=== PATIENT | female | born 1940 | race Caucasian/White ===

== ENCOUNTER 2017-06-28 06:39 | Day surgery (SDC) | payer MEDICARE, BC ==
[~2017-06-28 06:39] MED LIST: Lactated Ringers 1,000 ML IV SCH; Lidocaine 1%/Sod Bicarbonate in NS 8.4% 1 ML Syringe IDERM PRN; Sodium Chloride 0.9% 10 ML Syringe FLUSH PRN
[2017-06-28] MEDS ORDERED: Lidocaine 1% 4 ML ONE (06:44)
[2017-06-28] MEDS ORDERED: Propofol 200 MG/20 ML SDV ONE (06:44)
[2017-06-28] MEDS ORDERED: fentaNYL 100 MCG/2 ML SDV ONE (06:44)
--- NOTE | 2017-06-28 07:30 | PCM.PREANE ---
Preanesthetic Assessment - Procedure Proposed Procedure: colonoscopy - Anesthesia/Transfusion/Family Hx Anesthesia History: Prior Anesthesia Without Reaction (little nausea) Family History of Anesthesia Reaction: No Transfusion History: No Prior Transfusion(s) - Review of Systems General: No Symptoms Pulmonary: Shortness of Breath, Wheezing, Cough Cardiovascular: Dyspnea on Exertion Gastrointestinal: No Symptoms, Other (constipated) Neurological: No Symptoms Other: Reports: Thyroid Problems, Neck Pain - Physical Assessment NPO Status Date: 06/27/17 NPO Status Time: 23:00 Pulse: 71 O2 Sat by Pulse Oximetry: 96 Respiratory Rate: 16 Blood Pressure: 123/71 Temperature: 97.5 F Height: 5 ft 6 in Weight: 77 kg ASA Class: 3 Mental Status: Alert & Oriented x3 Airway Class: Mallampati = 1 Dentition: Reports: Normal Dentition Thyro-Mental Finger Breadths: 3 Mouth Opening Finger Breadths: 3 ROM/Head Extension: Full Lungs: Clear to Auscultation, Normal Respiratory Effort Cardiovascular: Regular Rate, Regular Rhythm - Allergies Allergies/Adverse Reactions: Allergies Allergy/AdvReac Type Severity Reaction Status Date / Time No Known Allergies Allergy Verified 06/27/17 11:35 - Blood Blood Available: No - Anesthesia Plan Beta Roque: Carvedilol Med Last Dose Date: 06/28/17 Med Last Dose Time: 06:00 - Acknowledgements Anesthesia Type Planned: MAC Pt an Appropriate Candidate for the Planned Anesthesia: Yes Alternatives and Risks of Anesthesia Discussed w Pt/Guardian: Yes Pt/Guardian Understands and Agrees with Anesthesia Plan: Yes PreAnesthesia Questionnaire HEENT History: Reports: Impaired Vision Cardiovascular History: Reports: Cardiomyopathy, Other (See Below) Other Cardiovascular History: mitral regurgitation, left BBB, chest pain, aortic regurgitation, palpitations Respiratory History: Reports: Asthma, Bronchitis, Recurrent Gastrointestinal History: Reports: Colon Polyp Genitourinary History: Reports: None HAND TIRE TRIMMER History: Reports: None Neurological History: Reports: Other (See Below) 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 Psychiatric History: Reports: None Endocrine/Metabolic History: Reports: None Hematologic History: Reports: None Immunologic History: Reports: None Oncologic (Cancer) History: Reports: None - Past Surgical History HEENT Surgical History: Reports: Tonsillectomy Cardiovascular Surgical History: Reports: None Respiratory Surgical History: Reports: None GI Surgical History: Reports: Colonoscopy Female Surgical History: Reports: LEEP Male Surgical History: Reports: None Endocrine Surgical History: Reports: None Musculoskeletal Surgical History: Reports: Knee Replacement Oncologic Surgical History: Reports: None Dermatological Surgical History: Reports: Other (See Below) - SUBSTANCE USE Smoking Status *Q: Former Smoker Tobacco Use Within Last Twelve Months: No Second Hand Smoke Exposure: No Days Per Week of Alcohol Use: 1 (very little) Number of Drinks Per Day: 1 Total Drinks Per Week: 1 Recreational Drug Use History: No - HOME MEDS Home Medications: Home Meds Aspirin [Dae Chewable] 192 mg PO DAILY 09/19/13 [History] Fluticasone/Salmeterol [Advair 100-50 Diskus] 1 puff INH BID 09/19/13 [History] Carvedilol 6.25 mg PO BID 06/27/17 [History] Furosemide 20 mg PO DAILY 06/27/17 [History] Levothyroxine [Synthroid] 50 mcg PO DAILY 06/27/17 [History] Lisinopril [Zestril] 2.5 mg PO BID 06/27/17 [History] Rosuvastatin [Crestor] 20 mg PO DAILY 06/27/17 [History] - CURRENT (IN HOUSE) MEDS Current Meds: Current Medications Lactated Ringer's (Ringers, Lactated) 1,000 mls @ 125 mls/hr IV ASDIRECTED LEELA Stop: 06/28/17 23:00 Lidocaine/Sodium Bicarbonate (Buffered Lidocaine 1% In Ns 8.4%) 0.25 ml IDERM ONETIME PRN PRN Reason: Prior to IV Start Stop: 06/28/17 18:00 Sodium Chloride (Saline Flush) 10 ml FLUSH ASDIRECTED PRN PRN Reason: Keep Vein Open Stop: 06/28/17 18:00 Discontinued Medications Fentanyl (Sublimaze) Confirm Administered Dose 100 mcg .ROUTE .STK-MED ONE Stop: 06/28/17 06:45 Lidocaine HCl (Xylocaine-Mpf 1%) Confirm Administered Dose 4 mls @ as directed .ROUTE .STK-MED ONE Stop: 06/28/17 06:45 Propofol (Diprivan 20 Ml) Confirm Administered Dose 200 mg .ROUTE .STK-MED ONE Stop: 06/28/17 06:45
[2017-06-28] MEDS ORDERED: ePHEDrine 50 MG/ML SDV ONE (08:52)
--- NOTE | 2017-06-28 08:56 | PCM.OPNOTE ---
- General Post-Op/Procedure Note Date of Surgery/Procedure: 06/28/17 Operative Procedure(s): Colonoscopy with cold forceps biopsy Findings: Diverticulosis of entire colon, 2 mm sigmoid polyp Pre Op Diagnosis: Change in bowel habits Post-Op Diagnosis: Diverticulosis of entire colon, 2 mm sigmoid colon polyp Anesthesia Technique: MAC Primary Surgeon: Hollis Clark Anesthesia Provider: Johana Montelongo EBL in mLs: 5 Complications: None Condition: Good Free Text/Narrative:: After the patient gave verbal and written consent, she was placed on blood pressure and pulse ox monitoring. She was given iv sedation which she tolerated well. The olympus colonoscope was advanced to the cecum without difficulty. The ileocecal valve and appendiceal orfice were imaged documenting cecal intubation. The scope was slowly withdrawn. The prep was excellent. The views were excellent. The mucosa was carefully examined. Moderate diverticulosis of the entire colon was noted. A 2 mm sigmoid polyp was noted and removed with cold forceps biopsy. There was good hemostasis. The scope was retroflexed in the rectum and then removed.
--- NOTE | 2017-06-28 08:58 | PCM48HPAN ---
Post Anesthesia Note - EVALUATION WITHIN 48HRS OF ANESTHETIC Vital Signs in Normal Range: Yes Patient Participated in Evaluation: Yes Respiratory Function Stable: Yes Airway Patent: Yes Cardiovascular Function Stable: Yes Hydration Status Stable: Yes Pain Control Satisfactory: Yes Nausea and Vomiting Control Satisfactory: Yes Mental Status Recovered: Yes Pulse Rate: 62 SaO2: 94 Resp Rate: 14 Temperature: 97.4 F Blood Pressure: 102/54
== END 2017-06-28 09:45 | disposition home or self-care (01) ==
LOC: JD.SDS 06:39
PROVIDERS: ATTEND Family Medicine
DX: K63.5 Polyp of colon (principal); K57.30 Diverticulosis of large intestine without perforation or abscess without bleeding; I44.7 Left bundle-branch block, unspecified; I42.0 Dilated cardiomyopathy; I34.0 Nonrheumatic mitral (valve) insufficiency; J45.20 Mild intermittent asthma, uncomplicated; J44.9 Chronic obstructive pulmonary disease, unspecified; E78.00 Pure hypercholesterolemia, unspecified; Z79.51 Long term (current) use of inhaled steroids; Z79.82 Long term (current) use of aspirin; Z79.899 Other long term (current) drug therapy; Z89.512 Acquired absence of left leg below knee; Z89.511 Acquired absence of right leg below knee; Z98.890 Other specified postprocedural states
CPT/HCPCS: 45380; 88305; J2001; J3010; J7120; 00811; J2704

== ENCOUNTER 2018-08-06 11:18 | Inpatient (IN) | payer MEDICARE, BC ==
[2018-08-06] MEDS ORDERED: Sodium Chloride 0.9% 10 ML Syringe FLUSH PRN ×2 (11:40→13:09)
--- NOTE | 2018-08-06 11:47 | EDM.PDOC ---
ED HPI GENERAL MEDICAL PROBLEM - General Chief Complaint: Respiratory Problem Stated Complaint: SHORT OF BREATH Time Seen by Provider: 08/06/18 11:31 Source of Information: Reports: Patient History Limitations: Reports: No Limitations - History of Present Illness INITIAL COMMENTS - FREE TEXT/NARRATIVE: 78-year-old female presents for evaluation and treatment shortness of breath. Reports that she has been experiencing shortness breath the last 3 or 4 days. States that she is working the garden recently and at first attributed this to pollens and her history of asthma. She states that last night she slept okay. She is really appreciated shortness of breath on exertion but also has some at rest. Reports that she's been feeling lightheaded. She also states that her arms "felt funny this week ". She states that she always has some swelling in her right ankle, feels this is no worse than normal. She reports some pain in her legs but attributes this to statins she's been on. She states she always uses 2 pillows at night to sleep. She denies any chest pain, dizziness, syncope , fevers, chills, cough or any cold symptoms. No sore throat or ear pain. Patient reports that she's been under a great deal of stress recently. states that she recently lost her a few months ago. She lost has lost about 15 pounds due to stress associated with this. She also has not eating as much is normal. She's does not see the point of cooking for one. Since have a decreased appetite. Primary care provider was Yudi Rios but she has not seen a new PCP since she has left. There she is a patient of Dr. Lynne, roll inspector in [place]. Last visit was in May. 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 She states when she saw him last everything was going well. She called Dr. Lynne's nurse this morning and instructed her to come to the ER. Patient is on 81 mg aspirin daily. - Related Data Allergies Allergy/AdvReac Type Severity Reaction Status Date / Time No Known Allergies Allergy Verified 08/06/18 16:02 Home Meds: Home Meds Sodium Chloride 0.9% [Normal Saline] 100 ml IV ASDIRECTED bag 08/06/18 [Rx] Sodium Chloride 0.9% [Saline Flush] 10 ml FLUSH ASDIRECTED PRN syringe [Rx] Sodium Chloride 0.9% [Saline Flush] 10 ml FLUSH ONETIME PRN syringe 08/06/18 [ Rx] Past Medical History HEENT History: Reports: Impaired Vision Cardiovascular History: Reports: Cardiomyopathy, Other (See Below) Other Cardiovascular History: mitral regurgitation, left BBB, chest pain, aortic regurgitation, palpitations Respiratory History: Reports: Asthma, Bronchitis, Recurrent Gastrointestinal History: Reports: Colon Polyp Genitourinary History: Reports: None EXTENSION FORESTER History: Reports: None Neurological History: Reports: Other (See Below) 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 Psychiatric History: Reports: None Endocrine/Metabolic History: Reports: None Hematologic History: Reports: None Immunologic History: Reports: None Oncologic (Cancer) History: Reports: None - Past Surgical History HEENT Surgical History: Reports: Tonsillectomy Cardiovascular Surgical History: Reports: None Respiratory Surgical History: Reports: None GI Surgical History: Reports: Colonoscopy Female Surgical History: Reports: LEEP Endocrine Surgical History: Reports: None Musculoskeletal Surgical History: Reports: Knee Replacement Oncologic Surgical History: Reports: None Dermatological Surgical History: Reports: Other (See Below) Social & Family History - Tobacco Use Smoking Status *Q: Never Smoker - Caffeine Use Caffeine Use: Reports: Coffee ED ROS GENERAL - Review of Systems Review Of Systems: See Below Constitutional: Denies: Fever, Chills HEENT: Denies: Ear Pain, Throat Pain Respiratory: Reports: Shortness of Breath. Denies: Cough, Sputum Cardiovascular: Reports: Dyspnea on Exertion, Lightheadedness. Denies: Chest Pain, Edema, Syncope GI/Abdominal: Reports: Nausea. Denies: Vomiting Musculoskeletal: Reports: Arm Pain (Bilateral), Leg Pain (Bilateral, tributes this to statins) Neurological: Denies: Syncope ED EXAM, GENERAL - Physical Exam Exam: See Below Exam Limited By: No Limitations General Appearance: Alert, WD/WN, No Apparent Distress, Anxious Nose: Normal Inspection Throat/Mouth: Normal Inspection, Normal Lips, Normal Oropharynx, Normal Voice, No Airway Compromise Neck: Normal Inspection, Supple, Non-Tender Respiratory/Chest: No Respiratory Distress, Lungs Clear, Normal Breath Sounds Cardiovascular: Normal Peripheral Pulses, Regular Rate, Rhythm, No Murmur Peripheral Pulses: 2+: Dorsalis Pedis (L), Dorsalis Pedis (R) Extremities: Normal Inspection, Pedal Edema (2+ non pitting edema), Other ( varicose veins) Neurological: Alert, Oriented, Normal Cognition Psychiatric: Normal Affect, Normal Mood Skin Exam: Warm, Dry, Normal Color EKG INTERPRETATION EKG Date: 08/06/18 Rhythm: NSR P-Wave: Present QT: Normal EKG Interpretation Comments: left ventricular hypertrophy. Q waves in inferior and anterior lateral lead. Reviewed by myself and Dr. Brennan. Course - Vital Signs Last Recorded V/S: Last Vital Signs Temp 98.8 F 08/06/18 15:12 Pulse 77 08/06/18 15:55 Resp 20 08/06/18 15:55 BP 126/77 08/06/18 15:55 Pulse Ox 94 L 08/06/18 15:55 - Orders/Labs/Meds Orders: Active Orders 24 hr Category Date Time Status Cardiac Monitoring [RC] . DIRECTED Care 08/06/18 11:40 Active Oxygen Therapy [RC] ASDIRECTED Care 08/06/18 11:40 Active Sodium Chloride 0.9% [Normal Saline] 100 ml Med 08/06/18 13:15 Active IV ASDIRECTED Sodium Chloride 0.9% [Saline Flush] Med 08/06/18 11:40 Active 10 ml FLUSH ASDIRECTED PRN Sodium Chloride 0.9% [Saline Flush] Med 08/06/18 13:09 Active 10 ml FLUSH ONETIME PRN Peripheral IV Insertion Adult [OM.PC] Routine Oth 08/06/18 11:40 Ordered Medication Orders Sodium Chloride (Normal Saline) 100 mls @ 75 mls/hr IV ASDIRECTED LEELA Last Admin: 08/06/18 13:36 Dose: 75 mls/hr Sodium Chloride (Saline Flush) 10 ml FLUSH ASDIRECTED PRN PRN Reason: Keep Vein Open Last Admin: 08/06/18 12:05 Dose: 10 ml Sodium Chloride (Saline Flush) 10 ml FLUSH ONETIME PRN PRN Reason: IV FLUSH Last Admin: 08/06/18 13:36 Dose: 10 ml Labs: Laboratory Tests 08/06/18 08/06/18 08/06/18 Range/Units 12:00 12:00 12:00 WBC 7.12 (3.98-10.04) K/mm3 RBC 4.19 (3.98-5.22) M/mm3 Hgb 13.1 (11.2-15.7) gm/L Hct 40.8 (34.1-44.9) % MCV 97.4 H (79.4-94.8) fl MCH 31.3 (25.6-32.2) pg MCHC 32.1 L (32.2-35.5) g/dl RDW Std Deviation 48.2 H (36.4-46.3) fL Plt Count 231 (182-369) K/mm3 MPV 9.4 (9.4-12.3) fl Neutrophils % (Manual) 80 H (40-60) % Band Neutrophils % 0 (0-10) % Lymphocytes % (Manual) 15 L (20-40) % Atypical Lymphs % 0 % Monocytes % (Manual) 2 (2-10) % Eosinophils % (Manual) 1 (0.7-5.8) % Basophils % (Manual) 2 H (0.1-1.2) Platelet Estimate Adequate RBC Morph Comment Normal PT 10.9 (9.5-12.1) SECONDS INR 1.00 APTT 26 (24-31) SECONDS D-Dimer, Quantitative 17.53 H (0.19-0.50) mg/L Sodium 143 (136-145) mEq/L Potassium 4.1 (3.5-5.1) mEq/L Chloride 109 H (98-107) mEq/L Carbon Dioxide 22 (21-32) mEq/L Anion Gap 16.1 H (5-15) BUN 17 (7-18) mg/dL Creatinine 0.8 (0.55-1.02) mg/dL Est Cr Clr Drug Dosing 58.46 mL/min Estimated GFR (MDRD) > 60 (>60) mL/min BUN/Creatinine Ratio 21.3 H (14-18) Glucose 124 H (83-115) mg/dL Calcium 9.0 (8.5-10.1) mg/dL Magnesium (1.8-2.4) mg/dl Total Bilirubin 0.5 (0.2-1.0) mg/dL AST 64 H (15-37) U/L ALT 57 (14-59) U/L Alkaline Phosphatase 74 (46-116) U/L Troponin I 0.038 (0.00-0.056) ng/mL C-Reactive Protein 1.7 H* (<1.0) mg/dL NT-Pro-B Natriuret Pep (0-450) pg/mL Total Protein 6.7 (6.4-8.2) g/dl Albumin 3.4 (3.4-5.0) g/dl Globulin 3.3 gm/dL Albumin/Globulin Ratio 1.0 (1-2) 08/06/18 08/06/18 Range/Units 12:00 12:00 WBC (3.98-10.04) K/mm3 RBC (3.98-5.22) M/mm3 Hgb (11.2-15.7) gm/L Hct (34.1-44.9) % MCV (79.4-94.8) fl MCH (25.6-32.2) pg MCHC (32.2-35.5) g/dl RDW Std Deviation (36.4-46.3) fL Plt Count (182-369) K/mm3 MPV (9.4-12.3) fl Neutrophils % (Manual) (40-60) % Band Neutrophils % (0-10) % Lymphocytes % (Manual) (20-40) % Atypical Lymphs % % Monocytes % (Manual) (2-10) % Eosinophils % (Manual) (0.7-5.8) % Basophils % (Manual) (0.1-1.2) Platelet Estimate RBC Morph Comment PT (9.5-12.1) SECONDS INR APTT (24-31) SECONDS D-Dimer, Quantitative (0.19-0.50) mg/L Sodium (136-145) mEq/L Potassium (3.5-5.1) mEq/L Chloride (98-107) mEq/L Carbon Dioxide (21-32) mEq/L Anion Gap (5-15) BUN (7-18) mg/dL Creatinine (0.55-1.02) mg/dL Est Cr Clr Drug Dosing mL/min Estimated GFR (MDRD) (>60) mL/min BUN/Creatinine Ratio (14-18) Glucose (83-115) mg/dL Calcium (8.5-10.1) mg/dL Magnesium 1.9 (1.8-2.4) mg/dl Total Bilirubin (0.2-1.0) mg/dL AST (15-37) U/L ALT (14-59) U/L Alkaline Phosphatase (46-116) U/L Troponin I (0.00-0.056) ng/mL C-Reactive Protein (<1.0) mg/dL NT-Pro-B Natriuret Pep 8184 H (0-450) pg/mL Total Protein (6.4-8.2) g/dl Albumin (3.4-5.0) g/dl Globulin gm/dL Albumin/Globulin Ratio (1-2) Meds: Medications Generic Name Dose Route Start Last Admin Trade Name Freq PRN Reason Stop Dose Admin Sodium Chloride 100 mls @ 75 mls/hr 08/06/18 13:15 08/06/18 13:36 Normal Saline IV 75 mls/hr ASDIRECTED LEELA Administration Sodium Chloride 10 ml 08/06/18 11:40 08/06/18 12:05 Saline Flush FLUSH 10 ml ASDIRECTED PRN Administration Keep Vein Open Sodium Chloride 10 ml 08/06/18 13:09 08/06/18 13:36 Saline Flush FLUSH 10 ml ONETIME PRN Administration IV FLUSH Discontinued Medications Generic Name Dose Route Start Last Admin Trade Name Freq PRN Reason Stop Dose Admin Enoxaparin Sodium 70 mg 08/06/18 14:12 08/06/18 14:31 Lovenox SUBCUT 08/06/18 14:13 70 mg ONETIME ONE Administration Iohexol 75 ml 08/06/18 13:09 08/06/18 13:36 Omnipaque IVPUSH 08/06/18 13:10 75 ml ONETIME ONE Administration Lorazepam 0.5 mg 08/06/18 13:05 08/06/18 13:22 Ativan IVPUSH 08/06/18 13:06 0.5 mg ONETIME ONE Administration - Radiology Interpretation Free Text/Narrative:: Chest: Frontal view of the chest was obtained utilizing portable technique. Comparison: No prior chest x-ray. Heart is enlarged. Tortuous thoracic aorta is seen as well as atherosclerotic calcification within the aortic knob. Lungs are clear. No acute parenchymal change is seen. Slight scoliosis and degenerative change is seen within the spine. Impression: 1. Cardiomegaly and other incidental findings. Nothing acute is appreciated on portable chest x-ray. CT chest Technique: Multiple axial sections were obtained through the chest. Intravenous contrast was utilized. Study has been performed as a pulmonary angiogram protocol. Findings: Filling defects are seen within the distal main pulmonary arteries as well as segmental and subsegmental branches of both lower lungs. Subsegmental clot is also seen within the left upper lung as well as segmental and subsegmental clot within the right upper lung. Atherosclerotic calcification is seen within the thoracic aorta without aneurysm. Coronary artery calcification is seen. Heart is slightly enlarged. Small pericardial effusion is seen. Right ventricle slightly enlarged as compared to the left ventricle likely representing early right ventricular strain. Small portion of the visualized upper abdominal structures show nothing acute. Lungs show no acute parenchymal change. Bone window settings show degenerative change throughout the thoracic spine. No acute osseous abnormality is appreciated. Impression: 1. Fairly significant amount of pulmonary emboli. Early right ventricular strain is felt to be present. 2. Other findings believed to be incidental as described above. - Re-Assessments/Exams Free Text/Narrative Re-Assessment/Exam: 08/06/18 13:09 Reviewed the lab results with the patient. D-dimer is quite elevated. Concerned she has a PE. CT pulmonary ordered. She continues to deny pain. Heart rate has been in the 90s. Her blood pressure has been stable currently is 114/67 with her rate of 93. 08/06/18 14:40 CT returned with multiple pulmonary emboli. Discussed anticoagulation. Patient is non decisional at this point on anticoagulation. Will start lovenox at this time. She is most familiar with coumadin and feels most comfortable with that. Informed of newer novel agents and bleeding risks. Concerned about bleeding risk and lack of reversal. Case discussed with Dr. Ceja, hospitalist, agrees to the admission. Asks we repeat 3 hour trop. Patient admitted to med/surg wit tele. Departure - Departure Time of Disposition: 14:45 Disposition: Admitted As Inpatient 66 Condition: Fair Clinical Impression: Pulmonary emboli, Hypoxia, Elevated brain natriuretic peptide (BNP) level - Discharge Information *PRESCRIPTION DRUG MONITORING PROGRAM REVIEWED*: No *COPY OF PRESCRIPTION DRUG MONITORING REPORT IN PATIENT BETTY: No - My Orders Last 24 Hours: My Active Orders 08/06/18 11:40 Cardiac Monitoring [RC] . DIRECTED Oxygen Therapy [RC] ASDIRECTED Sodium Chloride 0.9% [Saline Flush] 10 ml FLUSH ASDIRECTED PRN Peripheral IV Insertion Adult [OM.PC] Routine 08/06/18 13:09 Sodium Chloride 0.9% [Saline Flush] 10 ml FLUSH ONETIME PRN 08/06/18 13:15 Sodium Chloride 0.9% [Normal Saline] 100 ml IV ASDIRECTED - Assessment/Plan Last 24 Hours: My Active Orders 08/06/18 11:40 Cardiac Monitoring [RC] . DIRECTED Oxygen Therapy [RC] ASDIRECTED Sodium Chloride 0.9% [Saline Flush] 10 ml FLUSH ASDIRECTED PRN Peripheral IV Insertion Adult [OM.PC] Routine 08/06/18 13:09 Sodium Chloride 0.9% [Saline Flush] 10 ml FLUSH ONETIME PRN 08/06/18 13:15 Sodium Chloride 0.9% [Normal Saline] 100 ml IV ASDIRECTED
[2018-08-06] MEDS ORDERED: LORazepam 2 MG/ML SDV IVPUSH ONE (13:05)
[2018-08-06] MEDS ORDERED: Iohexol 350 MG/ML 75 ML Bottle IVPUSH ONE (13:09)
[2018-08-06] MEDS ORDERED: Sodium Chloride 0.9% 100 ML IV SCH (13:15)
--- NOTE | 2018-08-06 13:28 | CR ---
Chest: Frontal view of the chest was obtained utilizing portable technique. Comparison: No prior chest x-ray. Heart is enlarged. Tortuous thoracic aorta is seen as well as atherosclerotic calcification within the aortic knob. Lungs are clear. No acute parenchymal change is seen. Slight scoliosis and degenerative change is seen within the spine. Impression: 1. Cardiomegaly and other incidental findings. Nothing acute is appreciated on portable chest x-ray. Diagnostic code #2
--- NOTE | 2018-08-06 14:09 | CT ---
CT chest Technique: Multiple axial sections were obtained through the chest. Intravenous contrast was utilized. Study has been performed as a pulmonary angiogram protocol. Findings: Filling defects are seen within the distal main pulmonary arteries as well as segmental and subsegmental branches of both lower lungs. Subsegmental clot is also seen within the left upper lung as well as segmental and subsegmental clot within the right upper lung. Atherosclerotic calcification is seen within the thoracic aorta without aneurysm. Coronary artery calcification is seen. Heart is slightly enlarged. Small pericardial effusion is seen. Right ventricle slightly enlarged as compared to the left ventricle likely representing early right ventricular strain. Small portion of the visualized upper abdominal structures show nothing acute. Lungs show no acute parenchymal change. Bone window settings show degenerative change throughout the thoracic spine. No acute osseous abnormality is appreciated. Impression: 1. Fairly significant amount of pulmonary emboli. Early right ventricular strain is felt to be present. 2. Other findings believed to be incidental as described above. Diagnostic code #5
[2018-08-06] MEDS ORDERED: Enoxaparin 80 MG/0.8 ML Syringe SUBCUT ONE (14:12)
--- NOTE | 2018-08-06 16:22 | PCM.HP ---
H&P History of Present Illness - General Date of Service: 08/06/18 Admit Problem/Dx: Submassive Pulmonary embolism with right heart strain - History of Present Illness Initial Comments - Free Text/Narative: 73-year-old female with history of heart failure with reduced ejection fraction of 45-50% per echocardiogram present to the emergency room with a four-day history of worsening dyspnea on exertion and shortness of breath. Patient states that on Saturday she started developing shortness of breath when going 50 feet which she attributed to pollen and used her inhaler with minimal improvement. Within the next couple of days her dyspnea on exertion occurred with only a few steps. Patient presented to the emergency room this morning at 11:00 with worsening shortness of breath. In the emergency room initial vitals were blood pressure 121/95, pulse rate of 119, pulse ox of 87% on room air, her straight rate of 16, temperature 97.2. Lab work was done which was positive with a d-dimer of 17.53 and a proBNP [place] 8184. CT angiogram of the chest was performed which showed filling defects seen within the distal main pulmonary arteries as well as segmental and subsegmental branches of both lower lungs. Subsegmental clot is also seen within the left upper lung as well as segmental and subsegmental clot within the right upper lung. Heart was slightly enlarged with small pericardial effusion seen. Right ventricle slightly enlarged as compared to the left likely representing early right ventricular strain. Patient was given Lovenox 1 mg/kg. She was then transferred to the floor. When we received her to the floor patient's release of information clerk Dr. Lynne was contacted who recommended she be transferred to [facility]'s ICU. I spoke with software integration developer Dr. Malik who agreed. I spoke with the ICU attending doctor may wish who accepted the patient in transfer. Patient is hemodynamically stable currently and felt to be stable for transfer via ground transportation, ambulance. I discussed this with her and her son who are in agreement with the transfer. - Related Data Allergies/Adverse Reactions: Allergies Allergy/AdvReac Type Severity Reaction Status Date / Time No Known Allergies Allergy Verified 08/06/18 16:02 Home Medications: Home Meds Sodium Chloride 0.9% [Normal Saline] 100 ml IV ASDIRECTED bag 08/06/18 [Rx] Sodium Chloride 0.9% [Saline Flush] 10 ml FLUSH ASDIRECTED PRN syringe [Rx] Sodium Chloride 0.9% [Saline Flush] 10 ml FLUSH ONETIME PRN syringe 08/06/18 [ Rx] Past Medical History HEENT History: Reports: Impaired Vision Cardiovascular History: Reports: Cardiomyopathy, Other (See Below) Other Cardiovascular History: mitral regurgitation, left BBB, chest pain, aortic regurgitation, palpitations Respiratory History: Reports: Asthma, Bronchitis, Recurrent Gastrointestinal History: Reports: Colon Polyp Genitourinary History: Reports: None MOUNTER SOUSAPHONES History: Reports: None Neurological History: Reports: Other (See Below) 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 Psychiatric History: Reports: None Endocrine/Metabolic History: Reports: None Hematologic History: Reports: None Immunologic History: Reports: None Oncologic (Cancer) History: Reports: None - Past Surgical History HEENT Surgical History: Reports: Tonsillectomy Cardiovascular Surgical History: Reports: None Respiratory Surgical History: Reports: None GI Surgical History: Reports: Colonoscopy Female Surgical History: Reports: LEEP Endocrine Surgical History: Reports: None Musculoskeletal Surgical History: Reports: Knee Replacement Oncologic Surgical History: Reports: None Dermatological Surgical History: Reports: Other (See Below) Social & Family History - Tobacco Use Smoking Status *Q: Never Smoker - Caffeine Use Caffeine Use: Reports: Coffee - Recreational Drug Use Recreational Drug Use: No H&P Review of Systems - Review of Systems: Review Of Systems: ROS reveals no pertinent complaints other than HPI. Exam - Exam Exam: See Below - Vital Signs Vital Signs: Last Vital Signs Temp 98.8 F 08/06/18 15:12 Pulse 77 08/06/18 15:55 Resp 20 08/06/18 15:55 BP 126/77 08/06/18 15:55 Pulse Ox 94 L 08/06/18 15:55 Weight: 161 lb 14.4 oz - Exam Quality Assessment: Supplemental Oxygen General: Alert, Oriented HEENT: Conjunctiva Clear, Mucosa Moist & [place], Posterior Pharynx Clear Neck: Supple, Trachea Midline Lungs: Normal Respiratory Effort, Rales Cardiovascular: Regular Rate, Regular Rhythm GI/Abdominal Exam: Normal Bowel Sounds, Soft, Non-Tender, No Distention Extremities: Normal Inspection, Normal Range of Motion, Non-Tender, Pedal Edema Skin: Warm, Dry, Intact Neuro Extensive - Mental Status: Alert, Oriented x3 Neuro Extensive - Motor, Sensory, Reflexes: CN II-XII Intact, Normal Gait Psychiatric: Alert, Normal Affect, Normal Mood - Patient Data Lab Results Last 24 hrs: Laboratory Results - last 24 hr 08/06/18 08/06/18 08/06/18 Range/Units 12:00 12:00 12:00 WBC 7.12 (3.98-10.04) K/mm3 RBC 4.19 (3.98-5.22) M/mm3 Hgb 13.1 (11.2-15.7) gm/L Hct 40.8 (34.1-44.9) % MCV 97.4 H (79.4-94.8) fl MCH 31.3 (25.6-32.2) pg MCHC 32.1 L (32.2-35.5) g/dl RDW Std Deviation 48.2 H (36.4-46.3) fL Plt Count 231 (182-369) K/mm3 MPV 9.4 (9.4-12.3) fl Neutrophils % (Manual) 80 H (40-60) % Band Neutrophils % 0 (0-10) % Lymphocytes % (Manual) 15 L (20-40) % Atypical Lymphs % 0 % Monocytes % (Manual) 2 (2-10) % Eosinophils % (Manual) 1 (0.7-5.8) % Basophils % (Manual) 2 H (0.1-1.2) Platelet Estimate Adequate RBC Morph Comment Normal PT 10.9 (9.5-12.1) SECONDS INR 1.00 APTT 26 (24-31) SECONDS D-Dimer, Quantitative 17.53 H (0.19-0.50) mg/L Sodium 143 (136-145) mEq/L Potassium 4.1 (3.5-5.1) mEq/L Chloride 109 H (98-107) mEq/L Carbon Dioxide 22 (21-32) mEq/L Anion Gap 16.1 H (5-15) BUN 17 (7-18) mg/dL Creatinine 0.8 (0.55-1.02) mg/dL Est Cr Clr Drug Dosing 58.46 mL/min Estimated GFR (MDRD) > 60 (>60) mL/min BUN/Creatinine Ratio 21.3 H (14-18) Glucose 124 H (83-115) mg/dL Calcium 9.0 (8.5-10.1) mg/dL Magnesium (1.8-2.4) mg/dl Total Bilirubin 0.5 (0.2-1.0) mg/dL AST 64 H (15-37) U/L ALT 57 (14-59) U/L Alkaline Phosphatase 74 (46-116) U/L Troponin I 0.038 (0.00-0.056) ng/mL C-Reactive Protein 1.7 H* (<1.0) mg/dL NT-Pro-B Natriuret Pep (0-450) pg/mL Total Protein 6.7 (6.4-8.2) g/dl Albumin 3.4 (3.4-5.0) g/dl Globulin 3.3 gm/dL Albumin/Globulin Ratio 1.0 (1-2) 08/06/18 08/06/18 08/06/18 Range/Units 12:00 12:00 15:15 WBC (3.98-10.04) K/mm3 RBC (3.98-5.22) M/mm3 Hgb (11.2-15.7) gm/L Hct (34.1-44.9) % MCV (79.4-94.8) fl MCH (25.6-32.2) pg MCHC (32.2-35.5) g/dl RDW Std Deviation (36.4-46.3) fL Plt Count (182-369) K/mm3 MPV (9.4-12.3) fl Neutrophils % (Manual) (40-60) % Band Neutrophils % (0-10) % Lymphocytes % (Manual) (20-40) % Atypical Lymphs % % Monocytes % (Manual) (2-10) % Eosinophils % (Manual) (0.7-5.8) % Basophils % (Manual) (0.1-1.2) Platelet Estimate RBC Morph Comment PT (9.5-12.1) SECONDS INR APTT (24-31) SECONDS D-Dimer, Quantitative (0.19-0.50) mg/L Sodium (136-145) mEq/L Potassium (3.5-5.1) mEq/L Chloride (98-107) mEq/L Carbon Dioxide (21-32) mEq/L Anion Gap (5-15) BUN (7-18) mg/dL Creatinine (0.55-1.02) mg/dL Est Cr Clr Drug Dosing mL/min Estimated GFR (MDRD) (>60) mL/min BUN/Creatinine Ratio (14-18) Glucose (83-115) mg/dL Calcium (8.5-10.1) mg/dL Magnesium 1.9 (1.8-2.4) mg/dl Total Bilirubin (0.2-1.0) mg/dL AST (15-37) U/L ALT (14-59) U/L Alkaline Phosphatase (46-116) U/L Troponin I 0.051 (0.00-0.056) ng/mL C-Reactive Protein (<1.0) mg/dL NT-Pro-B Natriuret Pep 8184 H (0-450) pg/mL Total Protein (6.4-8.2) g/dl Albumin (3.4-5.0) g/dl Globulin gm/dL Albumin/Globulin Ratio (1-2) Result Diagrams: 08/06/18 12:00 08/06/18 12:00 - Problem List (1) Pulmonary embolism with acute cor pulmonale SNOMED Code(s): 18916683, 63116975 ICD Code: I26.09 - OTHER PULMONARY EMBOLISM WITH ACUTE COR PULMONALE Status : Acute Current Visit: Yes Problem List Initiated/Reviewed/Updated: Yes Orders Last 24hrs: Active Orders 24 hr Category Date Time Status Patient Status [ADT] Routine ADT 08/06/18 14:44 Active Cardiac Monitoring [RC] . DIRECTED Care 08/06/18 11:40 Active Oxygen Therapy [RC] ASDIRECTED Care 08/06/18 11:40 Active Ready for Discharge [RC] PER UNIT ROUTINE Care 08/06/18 16:20 Ordered Heart Healthy Diet [DIET] Diet 08/06/18 Dinner Active Sodium Chloride 0.9% [Normal Saline] 100 ml Med 08/06/18 13:15 Active IV ASDIRECTED Sodium Chloride 0.9% [Saline Flush] Med 08/06/18 11:40 Active 10 ml FLUSH ASDIRECTED PRN Sodium Chloride 0.9% [Saline Flush] Med 08/06/18 13:09 Active 10 ml FLUSH ONETIME PRN Peripheral IV Insertion Adult [OM.PC] Routine Oth 08/06/18 11:40 Ordered Medication Orders Sodium Chloride (Normal Saline) 100 mls @ 75 mls/hr IV ASDIRECTED LEELA Last Admin: 08/06/18 13:36 Dose: 75 mls/hr Sodium Chloride (Saline Flush) 10 ml FLUSH ASDIRECTED PRN PRN Reason: Keep Vein Open Last Admin: 08/06/18 12:05 Dose: 10 ml Sodium Chloride (Saline Flush) 10 ml FLUSH ONETIME PRN PRN Reason: IV FLUSH Last Admin: 08/06/18 13:36 Dose: 10 ml Assessment/Plan Comment:: Patient be transferred via ambulance to [facility]'s ICU. She will be on normal saline 100 mL an hour with O2 to keep oxygen saturations above 92%. Dr. Quintanilla is the accepting physician. Patient is hemodynamically stable and felt to be appropriate for ground transportation.
[2018-08-06] MEDS ORDERED: Sodium Chloride 0.9% 1,000 ML IV SCH (16:45)
--- NOTE | 2018-08-06 16:59 | PCM.DCSUM1 ---
Discharge Summary - Hospital Course HPI Initial Comments: 73-year-old female with history of heart failure with reduced ejection fraction of 45-50% per echocardiogram present to the emergency room with a four-day history of worsening dyspnea on exertion and shortness of breath. Patient states that on Saturday she started developing shortness of breath when going 50 feet which she attributed to pollen and used her inhaler with minimal improvement. Within the next couple of days her dyspnea on exertion occurred with only a few steps. Patient presented to the emergency room this morning at 11:00 with worsening shortness of breath. In the emergency room initial vitals were blood pressure 121/95, pulse rate of 119, pulse ox of 87% on room air, her straight rate of 16, temperature 97.2. Lab work was done which was positive with a d-dimer of 17.53 and a proBNP [place] 8184. CT angiogram of the chest was performed which showed filling defects seen within the distal main pulmonary arteries as well as segmental and subsegmental branches of both lower lungs. Subsegmental clot is also seen within the left upper lung as well as segmental and subsegmental clot within the right upper lung. Heart was slightly enlarged with small pericardial effusion seen. Right ventricle slightly enlarged as compared to the left likely representing early right ventricular strain. Patient was given Lovenox 1 mg/kg. She was then transferred to the floor. When we received her to the floor patient's wash box operator Dr. Lynne was contacted who recommended she be transferred to [facility]'s ICU. I spoke with textile technical officer Dr. Malik who agreed. I spoke with the ICU attending doctor may wish who accepted the patient in transfer. Patient is hemodynamically stable currently and felt to be stable for transfer via ground transportation, ambulance. I discussed this with her and her son who are in agreement with the transfer. Diagnosis: Stroke: No - Discharge Data Discharge Date: 08/06/18 Discharge Disposition: DC/Tfer to Acute Hospital 02 Condition: Poor - Discharge Diagnosis/Problem(s) (1) Pulmonary embolism with acute cor pulmonale SNOMED Code(s): 55282873, [id number] ICD Code: I26.09 - OTHER PULMONARY EMBOLISM WITH ACUTE COR PULMONALE Status : Acute Current Visit: Yes - Patient Instructions Diet: NPO Activity: Bedrest Driving: Do Not Drive Showering/Bathing: No Showering - Discharge Plan *PRESCRIPTION DRUG MONITORING PROGRAM REVIEWED*: No *COPY OF PRESCRIPTION DRUG MONITORING REPORT IN PATIENT BETTY: No Home Medications: Home Meds Sodium Chloride 0.9% [Normal Saline] 100 ml IV ASDIRECTED bag 08/06/18 [Rx] Sodium Chloride 0.9% [Saline Flush] 10 ml FLUSH ASDIRECTED PRN syringe [Rx] Sodium Chloride 0.9% [Saline Flush] 10 ml FLUSH ONETIME PRN syringe 08/06/18 [ Rx] Oxygen Therapy Mode: Nasal Cannula Oxygen Flow Rate (L/min): 2 Referrals: PCP,Unknown [Ordering Only Provider] - - Discharge Summary/Plan Comment DC Time >30 min.: Yes Discharge Summary/Plan Comment: Transferred to [facility] accepting physician Dr. Quintanilla - General Info Date of Service: 08/06/18 Admission Dx/Problem (Free Text: Submassive Pulmonary embolism with right heart strain Subjective Update: See H&P - Patient Data Vitals - Most Recent: Last Vital Signs Temp 98.8 F 08/06/18 15:12 Pulse 77 08/06/18 15:55 Resp 20 08/06/18 15:55 BP 126/77 08/06/18 15:55 Pulse Ox 94 L 08/06/18 15:55 Weight - Most Recent: 161 lb 14.4 oz Lab Results - Last 24 hrs: Laboratory Results - last 24 hr 08/06/18 08/06/18 08/06/18 Range/Units 12:00 12:00 12:00 WBC 7.12 (3.98-10.04) K/mm3 RBC 4.19 (3.98-5.22) M/mm3 Hgb 13.1 (11.2-15.7) gm/L Hct 40.8 (34.1-44.9) % MCV 97.4 H (79.4-94.8) fl MCH 31.3 (25.6-32.2) pg MCHC 32.1 L (32.2-35.5) g/dl RDW Std Deviation 48.2 H (36.4-46.3) fL Plt Count 231 (182-369) K/mm3 MPV 9.4 (9.4-12.3) fl Neutrophils % (Manual) 80 H (40-60) % Band Neutrophils % 0 (0-10) % Lymphocytes % (Manual) 15 L (20-40) % Atypical Lymphs % 0 % Monocytes % (Manual) 2 (2-10) % Eosinophils % (Manual) 1 (0.7-5.8) % Basophils % (Manual) 2 H (0.1-1.2) Platelet Estimate Adequate RBC Morph Comment Normal PT 10.9 (9.5-12.1) SECONDS INR 1.00 APTT 26 (24-31) SECONDS D-Dimer, Quantitative 17.53 H (0.19-0.50) mg/L Sodium 143 (136-145) mEq/L Potassium 4.1 (3.5-5.1) mEq/L Chloride 109 H (98-107) mEq/L Carbon Dioxide 22 (21-32) mEq/L Anion Gap 16.1 H (5-15) BUN 17 (7-18) mg/dL Creatinine 0.8 (0.55-1.02) mg/dL Est Cr Clr Drug Dosing 58.46 mL/min Estimated GFR (MDRD) > 60 (>60) mL/min BUN/Creatinine Ratio 21.3 H (14-18) Glucose 124 H (83-115) mg/dL Calcium 9.0 (8.5-10.1) mg/dL Magnesium (1.8-2.4) mg/dl Total Bilirubin 0.5 (0.2-1.0) mg/dL AST 64 H (15-37) U/L ALT 57 (14-59) U/L Alkaline Phosphatase 74 (46-116) U/L Troponin I 0.038 (0.00-0.056) ng/mL C-Reactive Protein 1.7 H* (<1.0) mg/dL NT-Pro-B Natriuret Pep (0-450) pg/mL Total Protein 6.7 (6.4-8.2) g/dl Albumin 3.4 (3.4-5.0) g/dl Globulin 3.3 gm/dL Albumin/Globulin Ratio 1.0 (1-2) 08/06/18 08/06/18 08/06/18 Range/Units 12:00 12:00 15:15 WBC (3.98-10.04) K/mm3 RBC (3.98-5.22) M/mm3 Hgb (11.2-15.7) gm/L Hct (34.1-44.9) % MCV (79.4-94.8) fl MCH (25.6-32.2) pg MCHC (32.2-35.5) g/dl RDW Std Deviation (36.4-46.3) fL Plt Count (182-369) K/mm3 MPV (9.4-12.3) fl Neutrophils % (Manual) (40-60) % Band Neutrophils % (0-10) % Lymphocytes % (Manual) (20-40) % Atypical Lymphs % % Monocytes % (Manual) (2-10) % Eosinophils % (Manual) (0.7-5.8) % Basophils % (Manual) (0.1-1.2) Platelet Estimate RBC Morph Comment PT (9.5-12.1) SECONDS INR APTT (24-31) SECONDS D-Dimer, Quantitative (0.19-0.50) mg/L Sodium (136-145) mEq/L Potassium (3.5-5.1) mEq/L Chloride (98-107) mEq/L Carbon Dioxide (21-32) mEq/L Anion Gap (5-15) BUN (7-18) mg/dL Creatinine (0.55-1.02) mg/dL Est Cr Clr Drug Dosing mL/min Estimated GFR (MDRD) (>60) mL/min BUN/Creatinine Ratio (14-18) Glucose (83-115) mg/dL Calcium (8.5-10.1) mg/dL Magnesium 1.9 (1.8-2.4) mg/dl Total Bilirubin (0.2-1.0) mg/dL AST (15-37) U/L ALT (14-59) U/L Alkaline Phosphatase (46-116) U/L Troponin I 0.051 (0.00-0.056) ng/mL C-Reactive Protein (<1.0) mg/dL NT-Pro-B Natriuret Pep 8184 H (0-450) pg/mL Total Protein (6.4-8.2) g/dl Albumin (3.4-5.0) g/dl Globulin gm/dL Albumin/Globulin Ratio (1-2) Med Orders - Current: Current Medications Sodium Chloride (Normal Saline) 1,000 mls @ 100 mls/hr IV ASDIRECTED LEELA Last Admin: 08/06/18 16:44 Dose: 100 mls/hr Sodium Chloride (Saline Flush) 10 ml FLUSH ASDIRECTED PRN PRN Reason: Keep Vein Open Last Admin: 08/06/18 12:05 Dose: 10 ml Sodium Chloride (Saline Flush) 10 ml FLUSH ONETIME PRN PRN Reason: IV FLUSH Last Admin: 08/06/18 13:36 Dose: 10 ml Discontinued Medications Enoxaparin Sodium (Lovenox) 70 mg SUBCUT ONETIME ONE Stop: 08/06/18 14:13 Last Admin: 08/06/18 14:31 Dose: 70 mg Sodium Chloride (Normal Saline) 100 mls @ 75 mls/hr IV ASDIRECTED [facility] [place] Last Admin: 08/06/18 13:36 Dose: 75 mls/hr Iohexol (Omnipaque) 75 ml IVPUSH ONETIME ONE Stop: 08/06/18 13:10 Last Admin: 08/06/18 13:36 Dose: 75 ml Lorazepam (Ativan) 0.5 mg IVPUSH ONETIME ONE Stop: 08/06/18 13:06 Last Admin: 08/06/18 13:22 Dose: 0.5 mg
== END 2018-08-06 16:52 | DRG 176 ==
LOC: JD.ED 11:18 → JD.MS 14:44
PROVIDERS: ADMIT Family Medicine; ATTEND Family Medicine
DX: I26.09 Other pulmonary embolism with acute cor pulmonale (principal); I31.3 Pericardial effusion (noninflammatory); I26.99 Other pulmonary embolism without acute cor pulmonale; R06.02 Shortness of breath; J45.909 Unspecified asthma, uncomplicated; R79.89 Other specified abnormal findings of blood chemistry; R42 Dizziness and giddiness; Z79.82 Long term (current) use of aspirin; H54.7 Unspecified visual loss; I42.9 Cardiomyopathy, unspecified; I08.0 Rheumatic disorders of both mitral and aortic valves; I44.7 Left bundle-branch block, unspecified; Z86.010 Personal history of colon polyps; Z96.659 Presence of unspecified artificial knee joint; R06.00 Dyspnea, unspecified; R11.0 Nausea; M79.602 Pain in left arm; M79.601 Pain in right arm; R60.9 Edema, unspecified; R09.02 Hypoxemia; R74.8 Abnormal levels of other serum enzymes
CPT/HCPCS: 36415; 71045; 71275; 80053; 83735; 83880; 84484; 85007; 85027; 85379; 85610; 85730; 86140; 93005; 96372; 96374; 99285; J1650; J2060; J7030; Q9967; 93010; 99283; J7040

== ENCOUNTER 2020-12-10 07:54 | Emergency (ER) | payer MEDICARE, BC ==
--- NOTE | 2020-12-10 08:18 | EDM.PDOC ---
ED HPI GENERAL MEDICAL PROBLEM - General Chief Complaint: Cardiovascular Problem Stated Complaint: COVID +/WORSENING SYMPTOMS Time Seen by Provider: 12/10/20 08:08 - History of Present Illness INITIAL COMMENTS - FREE TEXT/NARRATIVE: 80-year-old female presents the emergency room with palpitations and anxiety. This started night. She relates a 11-day history of Covid symptoms she was diagnosed earlier this week and then on received monoclonal antibody treatment. She relates her symptoms probably being secondary to the monoclonal antibody treatment. She states she feels her heart jumping around in her chest this started evening. At times she gets intermittent very brief chest pain that goes from the anterior portion of her chest into her left scapula. She is not having any chest pain at this time or earlier this morning. Just the palpitations and to some degree anxiety. It she has been unable to sleep with the anxious feeling that she has been experiencing. Patient is on Eliquis. This is for blood clots. But she does give a history of having atrial fibrillation. She was seen by cardiology a couple of weeks ago and restarted on her Lasix and wonders if this has her system in [facility]. - Related Data Allergies Allergy/AdvReac Type Severity Reaction Status Date / Time No Known Allergies Allergy Verified 12/10/20 08:19 Home Meds: Home Meds Apixaban [Eliquis] 2.5 mg PO BID 12/10/20 [History] Fluticasone Propion/Salmeterol [Advair 250-50 Diskus] 1 puff IH BID 12/10/20 [History] Levothyroxine [Synthroid] 50 mcg PO ACBREAKFAST 12/10/20 [History] Pantoprazole Sodium [Protonix] 40 mg PO DAILY 12/10/20 [History] carvediloL [Carvedilol] 6.25 mg PO BID 12/10/20 [History] lisinopriL [Lisinopril] 2.5 mg PO BID 12/10/20 [History] Past Medical History HEENT History: Reports: Impaired Vision Cardiovascular History: Reports: Cardiomyopathy, Other (See Below) Other Cardiovascular History: mitral regurgitation, left BBB, chest pain, aortic regurgitation, palpitations Respiratory History: Reports: Asthma, Bronchitis, Recurrent Gastrointestinal History: Reports: Colon Polyp Genitourinary History: Reports: None COST COORDINATOR History: Reports: None Neurological History: Reports: Other (See Below) 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 Psychiatric History: Reports: None Endocrine/Metabolic History: Reports: None Hematologic History: Reports: None Immunologic History: Reports: None Oncologic (Cancer) History: Reports: None - Past Surgical History HEENT Surgical History: Reports: Tonsillectomy Cardiovascular Surgical History: Reports: None Respiratory Surgical History: Reports: None GI Surgical History: Reports: Colonoscopy Female Surgical History: Reports: LEEP Endocrine Surgical History: Reports: None Musculoskeletal Surgical History: Reports: Knee Replacement Oncologic Surgical History: Reports: None Dermatological Surgical History: Reports: Other (See Below) Social & Family History - Caffeine Use Caffeine Use: Reports: Coffee ED ROS GENERAL - Review of Systems Review Of Systems: See Below Constitutional: Reports: Malaise, Weakness, Fatigue HEENT: Reports: No Symptoms Respiratory: Reports: Cough Cardiovascular: Reports: Palpitations Endocrine: Reports: No Symptoms GI/Abdominal: Reports: No Symptoms : Reports: No Symptoms Musculoskeletal: Reports: Other (Generalized achiness but this seems to be improving) Skin: Reports: No Symptoms Neurological: Reports: No Symptoms Psychiatric: Reports: Anxiety ED EXAM, GENERAL - Physical Exam Exam: See Below Exam Limited By: No Limitations General Appearance: Alert, No Apparent Distress, Other (She appears to be in an atrial driven tachycardia rate in the 120s with some variability) Head: Atraumatic, Normocephalic Neck: Normal Inspection, Supple, Non-Tender, Full Range of Motion Respiratory/Chest: No Respiratory Distress, Lungs Clear, Normal Breath Sounds Cardiovascular: Regular Rate, Rhythm, No Edema, No Murmur GI/Abdominal: Normal Bowel Sounds, Soft, Non-Tender Back Exam: Normal Inspection. No: CVA Tenderness (L), CVA Tenderness (R) Extremities: Pedal Edema (Trace to +1 pitting) Neurological: Alert, Oriented, Normal Cognition Psychiatric: Anxious Skin Exam: Warm, Dry, Intact #1 Interpretation EKG Date: 12/10/20 Rhythm: Other (Sinus tachycardia) Rate (Beats/Min): 123 [place]: LAD-Left [place] Deviation P-Wave: Absent (Incorporated with T waves) QRS: Other (Interventricular conduction delay) ST-T: Other (Exaggerated repolarization secondary to tachycardia) QT: Prolonged Comparison: Change From Previous EKG (Tachycardiac exaggerated repolarization abnormality from tracing on 08/06/2018) EKG Interpretation Comments: Abnormal EKG #2 Interpretation EKG Date: 12/10/20 Rhythm: NSR [place]: LAD-Left [place] Deviation P-Wave: Present QRS: Other (Interventricular conduction delay Q waves noted anteriorly) ST-T: Other (Repolarization abnormality much better than prior) QT: Normal Comparison: Change From Previous EKG EKG Interpretation Comments: Improved tachycardia improved repolarization ST changes compared to #1 from today. Abnormal EKG Course - Vital Signs Last Recorded V/S: Last Vital Signs Temp 37.0 C 12/10/20 08:07 Pulse 123 H 12/10/20 08:45 Resp 21 H 12/10/20 08:07 BP 130/79 12/10/20 08:45 Pulse Ox 95 12/10/20 08:07 - Orders/Labs/Meds Orders: Active Orders 24 hr Category Date Time Status EKG 12 Lead [EK] Stat Ther 12/10/20 08:28 Ordered EKG 12 Lead [EK] Stat Ther 12/10/20 09:00 Ordered Labs: Laboratory Tests 12/10/20 12/10/20 12/10/20 Range/Units 08:14 08:14 08:14 WBC 4.40 (3.98-10.04) K/mm3 RBC 4.58 (3.98-5.22) M/mm3 Hgb 14.3 (11.2-15.7) gm/dl Hct 44.4 (34.1-44.9) % MCV 96.9 H (79.4-94.8) fl MCH 31.2 (25.6-32.2) pg MCHC 32.2 (32.2-35.5) g/dl RDW Std Deviation 45.3 (36.4-46.3) fL Plt Count 293 (182-369) K/mm3 MPV 9.5 (9.4-12.3) fl Neut % (Auto) 73.2 H (34.0-71.1) % Lymph % (Auto) 15.0 L (19.3-51.7) % [place] % (Auto) 10.9 (4.7-12.5) % Eos % (Auto) 0.5 L (0.7-5.8) Baso % (Auto) 0.2 (0.1-1.2) % Neut # (Auto) 3.22 (1.56-6.13) K/mm3 Lymph # (Auto) 0.66 L (1.18-3.74) K/mm3 [place] # (Auto) 0.48 H (0.24-0.36) K/mm3 Eos # (Auto) 0.02 L (0.04-0.36) K/mm3 Baso # (Auto) 0.01 (0.01-0.08) K/mm3 PT 10.9 (9.7-12.0) SECONDS INR 0.98 APTT (21.7-31.4) SECONDS D-Dimer, Quantitative (0.19-0.50) mg/L Sodium 138 (136-145) mEq/L Potassium 3.9 (3.5-5.1) mEq/L Chloride 104 (98-107) mEq/L Carbon Dioxide 22 (21-32) mEq/L Anion Gap 15.9 H (5-15) BUN 15 (7-18) mg/dL Creatinine 0.8 (0.55-1.02) mg/dL Est Cr Clr Drug Dosing 56.58 mL/min Estimated GFR (MDRD) > 60 (>60) mL/min BUN/Creatinine Ratio 18.8 H (14-18) Glucose 137 H (70-99) mg/dL Calcium 8.9 (8.5-10.1) mg/dL Magnesium 1.9 (1.8-2.4) mg/dL Total Bilirubin 0.8 (0.2-1.0) mg/dL AST 22 (15-37) U/L ALT 20 (14-59) U/L Alkaline Phosphatase 60 (46-116) U/L Troponin I < 0.017 (0.00-0.056) ng/mL Total Protein 7.5 (6.4-8.2) g/dl Albumin 3.3 L (3.4-5.0) g/dl Globulin 4.2 gm/dL Albumin/Globulin Ratio 0.8 L (1-2) 12/10/20 Range/Units 08:14 WBC (3.98-10.04) K/mm3 RBC (3.98-5.22) M/mm3 Hgb (11.2-15.7) gm/dl Hct (34.1-44.9) % MCV (79.4-94.8) fl MCH (25.6-32.2) pg MCHC (32.2-35.5) g/dl RDW Std Deviation (36.4-46.3) fL Plt Count (182-369) K/mm3 MPV (9.4-12.3) fl Neut % (Auto) (34.0-71.1) % Lymph % (Auto) (19.3-51.7) % [place] % (Auto) (4.7-12.5) % Eos % (Auto) (0.7-5.8) Baso % (Auto) (0.1-1.2) % Neut # (Auto) (1.56-6.13) K/mm3 Lymph # (Auto) (1.18-3.74) K/mm3 [place] # (Auto) (0.24-0.36) K/mm3 Eos # (Auto) (0.04-0.36) K/mm3 Baso # (Auto) (0.01-0.08) K/mm3 PT (9.7-12.0) SECONDS INR APTT 26.6 (21.7-31.4) SECONDS D-Dimer, Quantitative 0.44 (0.19-0.50) mg/L Sodium (136-145) mEq/L Potassium (3.5-5.1) mEq/L Chloride (98-107) mEq/L Carbon Dioxide (21-32) mEq/L Anion Gap (5-15) BUN (7-18) mg/dL Creatinine (0.55-1.02) mg/dL Est Cr Clr Drug Dosing mL/min Estimated GFR (MDRD) (>60) mL/min BUN/Creatinine Ratio (14-18) Glucose (70-99) mg/dL Calcium (8.5-10.1) mg/dL Magnesium (1.8-2.4) mg/dL Total Bilirubin (0.2-1.0) mg/dL AST (15-37) U/L ALT (14-59) U/L Alkaline Phosphatase (46-116) U/L Troponin I (0.00-0.056) ng/mL Total Protein (6.4-8.2) g/dl Albumin (3.4-5.0) g/dl Globulin gm/dL Albumin/Globulin Ratio (1-2) Meds: Medications Discontinued Medications Generic Name Dose Route Start Last Admin Trade Name Barbara PRN Reason Stop Dose Admin Metoprolol Tartrate 5 mg 12/10/20 08:40 12/10/20 08:45 Metoprolol Tartrate 5 Mg/5 Ml Sdv IVPUSH 12/10/20 08:41 5 mg ONETIME ONE Administration - Re-Assessments/Exams Free Text/Narrative Re-Assessment/Exam: 12/10/20 08:44 EKG is concerning with diffuse ST segment elevation in the setting of a SVT. Pericarditis is not excluded but with that tachycardia is probably a repolarization abnormality. However ischemia is not all excluded. The patient is currently taking Eliquis for DVTs and she says she has a history of A. fib. I did discuss situation with Dr. Nogueira consumer recruiter at [facility] in [place] who is on-call and covering for Dr. Lynne the patient's regular consumer recruiter. I offered Lopressor to slow the rate the patient is currently taking Coreg 6.25 mg twice daily as recommendation was 5 mg of Lopressor. 12/10/20 09:09 He received 5 mg of IV Lopressor. Now she states she is ready to go home feels great. Repeat EKG shows sinus rhythm rate 70 with a single PVC still some residual repolarization abnormality but much better than it was. I did review the situation with Dr. Nogueira again, his recommendation is increase the Coreg to 12.5 mg twice daily. We will await labs and further evaluation but if nothing is unrevealing with this will increase the Coreg and anticipate sending the patient home. Departure - Departure Time of Disposition: 10:50 Disposition: Home, Self-Care 01 Clinical Impression: Supraventricular tachycardia Referrals: Maria E Zamorano PA-C [Primary Care Provider] - Forms: ED Department Discharge Additional Instructions: Return to the emergency room with any questions problems or worsening symptoms. If you have not taking your morning medication take them as soon as you get home. Starting this evening increase your Coreg to 2 tablets twice daily or 12.5 mg from the single 6.25 mg. Other than this medication adjustment take your other medications as directed. Follow-up over the phone with Dr. Lynne, your consumer recruiter, with [facility] on Saturday. Sepsis Event Note (ED) - Focused Exam Vital Signs: Vital Signs Temp Pulse Pulse Resp BP BP Pulse Ox 12/10/20 08:45 123 H 130/79 12/10/20 08:07 37.0 C 124 H 21 H 123/91 H 95 - My Orders Last 24 Hours: My Active Orders 12/10/20 08:28 EKG 12 Lead [EK] Stat 12/10/20 09:00 EKG 12 Lead [EK] Stat - Assessment/Plan Last 24 Hours: My Active Orders 12/10/20 08:28 EKG 12 Lead [EK] Stat 12/10/20 09:00 EKG 12 Lead [EK] Stat
[2020-12-10] MEDS ORDERED: Metoprolol Tartrate 5 MG/5 ML SDV IVPUSH ONE (08:40)
--- NOTE | 2020-12-10 09:40 | CR ---
Chest: Frontal view of the chest was obtained. Comparison: Prior chest x-ray and chest CT of 08/06/18. Heart is somewhat enlarged. Slight tortuosity of the thoracic aorta is seen. Slight degenerative change scattered within the spine with minimal scoliosis. Osteopenia is also present. Impression: 1. Cardiomegaly and other findings as described above. 2. Nothing acute is appreciated on frontal chest x-ray. Diagnostic code #2
== END 2020-12-10 11:05 | disposition home or self-care (01) ==
LOC: JD.ED 07:54
DX: I47.1 Supraventricular tachycardia (principal); J45.909 Unspecified asthma, uncomplicated; Z79.01 Long term (current) use of anticoagulants; Z79.899 Other long term (current) drug therapy
CPT/HCPCS: 36415; 71045; 80053; 83735; 84484; 85025; 85379; 85610; 85730; 93005; 96374; 99285; J3490

== ENCOUNTER 2022-03-17 15:40 | Emergency (ER) | payer MEDICARE, BC ==
[2022-03-17] MEDS ORDERED: fentaNYL 100 MCG/2 ML SDV IVPUSH ONE (17:16)
[2022-03-17] MEDS ORDERED: Sodium Chloride 0.9% 1,000 ML IV ONE (17:18)
[2022-03-17] MEDS ORDERED: Iopamidol 612 MG/ML 100 ML Bottle IVPUSH ONE (17:21)
[2022-03-17] MEDS: Sodium Chloride 0.9% 10 ML Syringe FLUSH ONE ×2 (17:34→17:49)
[2022-03-17] MEDS ORDERED: Dicyclomine 20 MG/2 ML SDV IM ONE (19:35)
[2022-03-17] MEDS ORDERED: Dicyclomine 10 MG Cap PO ONE (20:08)
== END 2022-03-17 20:30 | disposition home or self-care (01) ==
LOC: JD.ED 15:40
DX: K43.9 Ventral hernia without obstruction or gangrene (principal); K59.00 Constipation, unspecified; I10 Essential (primary) hypertension; E03.9 Hypothyroidism, unspecified; Z79.01 Long term (current) use of anticoagulants; Z86.16 Personal history of COVID-19
CPT/HCPCS: 36415; 74177; 80053; 81001; 83735; 83880; 85025; 96361; 96372; 96374; 99284; A9270; J0500; J3010; J3490; J7030; Q9967

== ENCOUNTER 2023-01-30 12:49 | Day surgery (SDC) | payer MEDICARE, BC ==
[2023-01-30] MEDS ORDERED: HYDROmorphone 0.5 MG/0.5 ML Syringe IVPUSH ONE (13:28)
[2023-01-30] MEDS ORDERED: Ondansetron 4 MG/2 ML SDV IVPUSH ONE (13:28)
[2023-01-30 13:58] LABS: BASOPHILS PERCENT AUTO 0.8 % (0.0-1.0); EOSINOPHILS ABSOLUTE AUTO 0.1 K/mm3 (0.0-0.4); HEMATOCRIT 38.9 % (37.0-47.0); HEMOGLOBIN 12.9 gm/dl (12.0-16.0); IMMATURE GRAN ABSOLUTE AUTO 0.02 K/mm3 (0.00-0.05); IMMATURE GRAN PERCENT AUTO 0.4 % (0.0-0.4); LYMPHOCYTES ABSOLUTE AUTO 0.9 K/mm3 (1.0-4.8); LYMPHOCYTES PERCENT AUTO 16.7 % (24.0-44.0); MEAN CORPUSCULAR HEMOGLOBIN 32.5 pg (28.0-32.0); MEAN CORPUSCULAR HGB CONC 33.2 g/dl (32.0-36.0); MEAN PLATELET VOLUME 8.9 fl (9.4-12.3); MONOCYTES ABSOLUTE AUTO 0.4 K/mm3 (0.0-0.8); MONOCYTES PERCENT AUTO 7.5 % (0.0-8.0); NEUTROPHILS ABSOLUTE AUTO 3.8 K/mm3 (1.8-7.7); NEUTROPHILS PERCENT AUTO 73.6 % (41.0-71.0); PLATELET COUNT,PLT 236 K/mm3 (150-400); RED BLOOD CELL COUNT 3.97 M/mm3 (4.10-5.30)
[2023-01-30] MEDS ORDERED: Iopamidol 612 MG/ML 100 ML Bottle IVPUSH ONE (14:02)
[2023-01-30] MEDS ORDERED: Sodium Chloride 0.9% 10 ML Syringe FLUSH ONE (14:02)
[2023-01-30 14:27] LABS: A/G RATIO 0.8 (1-2); ALBUMIN 3.1 g/dl (3.4-5.0); ANION GAP 15.2 (5-15); BILIRUBIN TOTAL 0.8 mg/dL (0.2-1.0); BUN/CREATININE RATIO 16.3 (14-18); CALCIUM 8.9 mg/dL (8.5-10.1); CREATININE 0.8 mg/dL (0.55-1.02); EST CRCL DRUG DOSING (CG) 52.72 mL/min; POTASSIUM,K 4.2 mEq/L (3.5-5.1); PROTEIN TOTAL,TP 6.9 g/dl (6.4-8.2)
[2023-01-30] MEDS ORDERED: Factor IX Complex Human 500 UNIT VIAL IV ONE (15:43)
[2023-01-30] MEDS ORDERED: Piperacillin/Tazobactam 4.5 GM in Sodium Chloride 0.9% 100 ML IV ONE (16:00)
[2023-01-30] MEDS ORDERED: Propofol 200 MG/20 ML SDV ONE (16:10)
[2023-01-30] MEDS ORDERED: fentaNYL 100 MCG/2 ML SDV ONE (16:10)
[2023-01-30] MEDS ORDERED: Lidocaine 1% 5 ML VIAL ONE (16:11)
[2023-01-30] MEDS ORDERED: Succinylcholine 200 MG/10 ML MDV ONE (16:11)
[2023-01-30] MEDS ORDERED: Bupivacaine 0.5% 30 ML SDV ONE (16:42)
[2023-01-30] MEDS ORDERED: Ondansetron 4 MG/2 ML SDV ONE (17:31)
[2023-01-30] MEDS ORDERED: Dexamethasone 4 MG/ML 5 ML MDV ONE (17:31)
[2023-01-30] MEDS ORDERED: ePHEDrine 50 MG/ML SDV ONE (17:36)
[2023-01-30] MEDS ORDERED: fentaNYL 100 MCG/2 ML SDV IVPUSH PRN (17:41)
[2023-01-30] MEDS ORDERED: HYDROmorphone 0.5 MG/0.5 ML Syringe IVPUSH PRN (17:41)
[2023-01-30] MEDS ORDERED: Esmolol 100 MG/10 ML SDV ONE (18:00)
[2023-01-30] MEDS ORDERED: Ondansetron 4 MG/2 ML SDV IVPUSH PRN (18:54)
[2023-01-30] MEDS ORDERED: Morphine 2 MG/ML SYRINGE IVPUSH PRN (18:54)
[2023-01-30] MEDS ORDERED: Ketorolac 15 MG/ML SDV IVPUSH PRN (18:54)
[2023-01-30] MEDS: Lactated Ringers 1,000 ML IV SCH (21:39)
[2023-01-30] MEDS: Heparin Sodium 5,000 Units/ML Vial SUBCUT SCH (21:55)
[2023-01-31] MEDS: Heparin Sodium 5,000 Units/ML Vial SUBCUT SCH (08:49)
[2023-01-31] MEDS: Lactated Ringers 1,000 ML IV SCH (08:49)
[2023-01-31] MEDS ORDERED: Polyethylene Glycol 3350 Powder 17 GM Packet PO ONE (09:02)
[2023-01-31] MEDS ORDERED: Formoterol/Mometasone 200-5 MCG 8.8 GM Inhaler IH PRN (09:33)
[2023-01-31] MEDS ORDERED: Rivaroxaban 10 MG Tab PO SCH (18:00)
[2023-01-31] MEDS ORDERED: Lisinopril 2.5 MG Tab PO SCH (21:00)
[2023-01-31] MEDS ORDERED: Carvedilol 6.25 MG Tab PO SCH (21:00)
[2023-02-01] MEDS ORDERED: Levothyroxine 50 MCG Tab PO SCH (06:00)
[2023-02-01] MEDS ORDERED: Pantoprazole 40 MG Tab.CR PO SCH (09:00)
== END 2023-01-31 17:40 | disposition home or self-care (01) ==
LOC: JD.ED 12:49 → JD.SDS 16:51 → JD.ICU 20:09 → UNDOADMIN 20:09 → JD.ICU 20:09 → UNDODISIN 01-31 17:40 → JD.SDS 01-31 17:40
PROVIDERS: ATTEND Specialist
DX: K40.30 Unilateral inguinal hernia, with obstruction, without gangrene, not specified as recurrent (principal); I10 Essential (primary) hypertension; J45.909 Unspecified asthma, uncomplicated; I48.91 Unspecified atrial fibrillation; I42.9 Cardiomyopathy, unspecified; K21.9 Gastro-esophageal reflux disease without esophagitis; I27.82 Chronic pulmonary embolism; E03.9 Hypothyroidism, unspecified; Z79.01 Long term (current) use of anticoagulants; Z79.890 Hormone replacement therapy; Z79.899 Other long term (current) drug therapy
CPT/HCPCS: 00840; 36415; 74177; 74177-26; 80053; 85025; 93005; 93010; 99100; 99140; 99284; A9270-GY; J0330; J1100; J1170; J1644; J1885; J2405; J2543; J2704; J3010; J3490; J7120; J7168; Q9967

== ENCOUNTER 2024-08-31 17:03 | Inpatient (IN) | payer MEDICARE, BC ==
[2024-08-31 18:33] LABS: BASOPHILS ABSOLUTE AUTO 0.0 K/mm3 (0.0-0.2); BASOPHILS PERCENT AUTO 0.4 % (0.0-1.0); EOSINOPHILS ABSOLUTE AUTO 0.1 K/mm3 (0.0-0.4); EOSINOPHILS PERCENT AUTO 2.5 % (0.0-6.0); IMMATURE GRAN ABSOLUTE AUTO 0.01 K/mm3 (0.00-0.05); IMMATURE GRAN PERCENT AUTO 0.2 % (0.0-0.4); LYMPHOCYTES ABSOLUTE AUTO 1.0 K/mm3 (1.0-4.8); LYMPHOCYTES PERCENT AUTO 20.2 % (24.0-44.0); MEAN PLATELET VOLUME 10.1 fl (9.4-12.3); MONOCYTES ABSOLUTE AUTO 0.4 K/mm3 (0.0-0.8); MONOCYTES PERCENT AUTO 9.2 % (0.0-8.0); NEUTROPHILS ABSOLUTE AUTO 3.2 K/mm3 (1.8-7.7); NEUTROPHILS PERCENT AUTO 67.5 % (41.0-71.0); NRBC ABSOLUTE 0.00 (0.00-0.02); NRBC PERCENT 0.0 % (0.0-0.2); PLATELET COUNT,PLT 201 K/mm3 (150-400); RED BLOOD CELL COUNT 3.84 M/mm3 (4.10-5.30); WHITE BLOOD CELL COUNT,WBC 4.76 K/mm3 (3.9-11.3)
[2024-08-31 18:46] LABS: A/G RATIO 1.1 (1-2); ALANINE AMINOTRANSFERASE,ALT 87.0 U/L (14-59); ASPARTATE AMNIOTRANSFERASE,AST 124.0 U/L (15-37); BILIRUBIN TOTAL 0.6 mg/dL (0.2-1.0); BLOOD UREA NITROGEN,BUN 21.0 mg/dL (7-18); CARBON DIOXIDE,CO2 27.0 mEq/L (21-32); CHLORIDE,CL 106.0 mEq/L (98-107); CREATININE 0.8 mg/dL (0.55-1.02); EST CRCL DRUG DOSING (CG) 50.9 mL/min; ESTIMATED GFR 73.0 mL/min (>60); GLUCOSE RANDOM 124.0 mg/dL (70-99); POTASSIUM,K 4.4 mEq/L (3.5-5.1); PROTEIN TOTAL,TP 6.5 g/dl (6.4-8.2); SODIUM,NA 141.0 mEq/L (136-145); TROPONIN I HIGH SENSITIVITY 34.0 pg/mL (<=51)
[2024-08-31 19:06] LABS: APPEARANCE,URINE CLEAR (Clear); GLUCOSE,URINE NEGATIVE (Negative); OCCULT BLOOD,URINE TRACE-LYSED (Negative)
[2024-08-31 19:14] LABS: SQUAMOUS EPITHELIAL CELLS,UR 0-5 /hpf (0-5)
[2024-08-31] MEDS: Diltiazem 25 MG/5 ML SDV IVPUSH ONE (19:25)
[2024-08-31] MEDS: Sodium Chloride 0.9% 10 ML Syringe FLUSH PRN (19:29)
[2024-08-31] MEDS: Furosemide 40 MG/4 ML VIAL IVPUSH ONE (21:13)
[2024-09-01 09:04] LABS: TSH 8.586 uIU/mL (0.358-3.74)
[2024-09-01 09:48] LABS: T4 FREE 1.3 ng/dL (0.76-1.46)
[2024-09-02 05:06] LABS: BLOOD UREA NITROGEN,BUN 21.0 mg/dL (7-18); CARBON DIOXIDE,CO2 30.0 mEq/L (21-32); CHLORIDE,CL 106.0 mEq/L (98-107); CREATININE 0.8 mg/dL (0.55-1.02); EST CRCL DRUG DOSING (CG) 50.9 mL/min; ESTIMATED GFR 73.0 mL/min (>60); GLUCOSE RANDOM 100.0 mg/dL (70-99); POTASSIUM,K 3.6 mEq/L (3.5-5.1); SODIUM,NA 143.0 mEq/L (136-145)
== END 2024-09-02 18:09 | disposition home or self-care (01) | DRG 291 ==
LOC: JD.ED 17:03 → JD.MS 20:38
PROVIDERS: ADMIT Family Medicine; ATTEND Family Medicine
PROC: 4A02XM4 Measurement of Cardiac Total Activity, External Approach (ICD-10-PCS; principal; 2024-08-31)
PROC: 3E073KZ Introduction of Other Diagnostic Substance into Coronary Artery, Percutaneous Approach (ICD-10-PCS; 2024-08-31)
DX: I11.0 Hypertensive heart disease with heart failure (principal); I50.23 Acute on chronic systolic (congestive) heart failure; I42.0 Dilated cardiomyopathy; I48.91 Unspecified atrial fibrillation; Z66 Do not resuscitate; J44.9 Chronic obstructive pulmonary disease, unspecified; I50.9 Heart failure, unspecified; I49.3 Ventricular premature depolarization; H91.90 Unspecified hearing loss, unspecified ear; H54.7 Unspecified visual loss; K59.09 Other constipation; I42.8 Other cardiomyopathies; I08.0 Rheumatic disorders of both mitral and aortic valves; M19.90 Unspecified osteoarthritis, unspecified site; I44.0 Atrioventricular block, first degree; I44.7 Left bundle-branch block, unspecified; E78.00 Pure hypercholesterolemia, unspecified; K21.9 Gastro-esophageal reflux disease without esophagitis; E03.9 Hypothyroidism, unspecified; R79.89 Other specified abnormal findings of blood chemistry; Z96.659 Presence of unspecified artificial knee joint; Z86.711 Personal history of pulmonary embolism; Z90.49 Acquired absence of other specified parts of digestive tract; Z98.890 Other specified postprocedural states; Z79.899 Other long term (current) drug therapy; Z79.890 Hormone replacement therapy; Z79.01 Long term (current) use of anticoagulants; Z86.16 Personal history of COVID-19
CPT/HCPCS: 36415; 71046; 80053; 81001; 83735; 83880; 84439; 84443; 84484; 85025; 86140; 87086; 87426; 93005; 96374; 99285; J3490; 78452; 78452-26; 80048; 93010; 93017; 93306; 97116-GP; 97161-GP; A9270-GY; A9500; J1938; J2785